=== PATIENT | male | born 1950 | race Caucasian/White ===

== ENCOUNTER → 2016-10-16 | Outpatient (CLI) | payer BC | LOC: LAB 06:58 | DX: Z00.00 Encounter for general adult medical examination without abnormal findings (principal); Z12.5 Encounter for screening for malignant neoplasm of prostate ==

== ENCOUNTER → 2018-01-21 | Outpatient (CLI) | payer BC, MEDICARE ==
[2018-01-12 17:02] VITALS: BP 116/68
[~2018-01-21] MED LIST: ALEVE220 M1 PO; DIABETA 5MG5 MG/TAB PO; DICLOFENAC SOD50 MG PO; GLUCOPHAGE1000 MG PO; HYDROCHLOROTHIA1 T14 PO; MULTIVITAMIN1 SGL PO; PANTOPRAZOLE SO40 MG PO; SIMVASTATIN80 MG PO
== END ==
LOC: LAB 06:50
DX: Z12.11 Encounter for screening for malignant neoplasm of colon (principal); Z00.00 Encounter for general adult medical examination without abnormal findings

== ENCOUNTER → 2018-01-21 | Day surgery (SDC) | payer BC, MEDICARE ==
[2018-01-12 17:02] VITALS: BP 116/68
[~2018-01-21] MED LIST changes: +POTASSIUM CHLO10 ME7 PO
== END ==
LOC: RAD 06:37
DX: M19.012 Primary osteoarthritis, left shoulder (principal)

== ENCOUNTER 2018-02-21 16:38 | Emergency (ER) | payer BC, MEDICARE ==
[~2018-02-21] VITALS: Ht 170.2 cm; Wt 102.7 kg
[~2018-02-21 16:38] MED LIST changes: -POTASSIUM CHLO10 ME7 PO
[2018-02-21 17:23] LABS: EOS # 0.1 (0.04-0.40); HEMATOCRIT 40.6 % (42.0-52.0); HEMOGLOBIN 14.1 g/dL (13.5-18.0); LYMPH# 1.8 (1.50-4.00); MEAN CELL VOLUME 87 fl (78-100); MEAN CORPUSCULAR HEMOGLOBIN 30 pg (27-31); MEAN CORPUSCULAR HGB CONC 35 g/dL (33-37); MEAN PLATELET VOLUME 9.8 fl (7.4-10.4); MONO # 0.5 (0.20-0.80); NEU # 5.4 (1.40-6.50); PLATELET COUNT 255 K/mm3 (130-400); RED BLOOD COUNT 4.69 M/mm3 (4.20-5.60); RED CELL DISTRIBUTION WIDTH 12.7 % (11.5-14.5); WHITE BLOOD COUNT 7.8 K/mm3 (4.8-10.8)
[2018-02-21 17:35] LABS: ALBUMIN 4.1 g/dL (3.5-5.0); CALCIUM 9.3 mg/dL (8.4-10.2); POTASSIUM 3.5 mmol/L (3.6-5.0); TOTAL BILIRUBIN 0.6 mg/dL (0.2-1.3); TOTAL PROTEIN 6.7 g/dL (6.3-8.2)
[2018-02-21 17:43] LABS: D-DIMER 0.28 mg/L FEU (0.15-0.50)
[2018-02-21] MEDS ORDERED: POTASSIUM CHLO10 ME7 PO (18:47)
[2018-02-21 19:00] VITALS: BP 159/73
== END 2018-02-21 19:00 | disposition home or self-care (01) ==
LOC: ED 16:38
PROVIDERS: Family Medicine
DX: I49.1 Atrial premature depolarization (principal); E87.6 Hypokalemia; E11.9 Type 2 diabetes mellitus without complications; I10 Essential (primary) hypertension; G47.30 Sleep apnea, unspecified; E78.5 Hyperlipidemia, unspecified; K21.9 Gastro-esophageal reflux disease without esophagitis; Z91.14 Patient's other noncompliance with medication regimen; Z82.41 Family history of sudden cardiac death; Z79.84 Long term (current) use of oral hypoglycemic drugs; Z79.899 Other long term (current) drug therapy

== ENCOUNTER → 2018-05-15 | Outpatient (CLI) | payer BC, MEDICARE ==
[~2018-05-15] MED LIST changes: +POTASSIUM CHLO10 ME7 PO
[2018-05-15 23:51] LABS: FOLLICLE STIMULATING HORMONE 8.3 mIU/mL (1.0-12.0); LUTENIZING HORMONE 6.3 mIU/mL (0.6-12.1); PROLACTIN 5.5 ng/mL (3.5-19.4); TESTOSTERONE 440 ng/dL (221-716)
== END ==
LOC: LAB 06:55
PROVIDERS: Internal Medicine
DX: E11.9 Type 2 diabetes mellitus without complications (principal); E29.1 Testicular hypofunction

== ENCOUNTER 2019-01-29 11:31 | Emergency (ER) | payer BC, MEDICARE ==
[~2019-01-29] VITALS: Ht 170.2 cm; Wt 101.4 kg
[2019-01-29 11:50] LABS: HEMATOCRIT 41.3 % (42.0-52.0); HEMOGLOBIN 13.8 g/dL (13.5-18.0); LYMPH# 1.2 (1.50-4.00); MEAN CELL VOLUME 87 fl (78-100); MEAN CORPUSCULAR HEMOGLOBIN 29 pg (27-31); MEAN CORPUSCULAR HGB CONC 33 g/dL (33-37); MEAN PLATELET VOLUME 9.4 fl (7.4-10.4); MONO # 0.4 (0.20-0.80); NEU # 5.4 (1.40-6.50); PLATELET COUNT 271 K/mm3 (130-400); RED BLOOD COUNT 4.73 M/mm3 (4.20-5.60); RED CELL DISTRIBUTION WIDTH 13.2 % (11.5-14.5)
[2019-01-29] MEDS ORDERED: VOLTAREN-XR100 M1 PO (11:53)
[2019-01-29] MEDS ORDERED: CYCLOBENZAPRINE10 M1 PO (11:53)
[2019-01-29 11:59] LABS: ALBUMIN 3.9 g/dL (3.4-4.8)
[2019-01-29 12:00] LABS: POTASSIUM 4.6 mmol/L (3.5-5.1)
[2019-01-29 12:01] LABS: CALCIUM 9.1 mg/dL (8.3-10.5)
[2019-01-29 12:02] LABS: TOTAL PROTEIN 6.3 g/dL (6.2-8.1)
[2019-01-29 12:04] LABS: TOTAL BILIRUBIN 0.6 mg/dL (0.2-1.2)
[2019-01-29] MEDS ORDERED: MECLIZINE PO (12:36)
[2019-01-29 12:57] VITALS: BP 193/96
== END 2019-01-29 12:52 | disposition home or self-care (01) ==
LOC: ED 11:31
PROVIDERS: Nurse Practitioner Primary Care
DX: H81.13 Benign paroxysmal vertigo, bilateral (principal); E11.9 Type 2 diabetes mellitus without complications; I10 Essential (primary) hypertension; E78.5 Hyperlipidemia, unspecified; K21.9 Gastro-esophageal reflux disease without esophagitis; G47.30 Sleep apnea, unspecified; Z79.84 Long term (current) use of oral hypoglycemic drugs

== ENCOUNTER → 2019-11-16 | Outpatient (CLI) | payer BC, MEDICARE ==
[~2019-11-16] MED LIST changes: +CYCLOBENZAPRINE10 M1 PO; +MECLIZINE PO; +VOLTAREN-XR100 M1 PO
[2019-11-16 12:57] LABS: EOS # 0.1 (0.04-0.40); HEMATOCRIT 41.1 % (42.0-52.0); HEMOGLOBIN 13.8 g/dL (13.5-18.0); LYMPH# 1.8 (1.50-4.00); MEAN CELL VOLUME 88 fl (78-100); MEAN CORPUSCULAR HEMOGLOBIN 30 pg (27-31); MEAN CORPUSCULAR HGB CONC 34 g/dL (33-37); MEAN PLATELET VOLUME 9.3 fl (7.4-10.4); MONO # 0.5 (0.20-0.80); NEU # 4.5 (1.40-6.50); PLATELET COUNT 257 K/mm3 (130-400); RED BLOOD COUNT 4.68 M/mm3 (4.20-5.60); RED CELL DISTRIBUTION WIDTH 13.2 % (11.5-14.5); WHITE BLOOD COUNT 6.9 K/mm3 (4.8-10.8)
[2019-11-16 13:04] LABS: ALBUMIN 4.2 g/dL (3.4-4.8); POTASSIUM 4.4 mmol/L (3.5-5.1)
[2019-11-16 13:05] LABS: CALCIUM 9.3 mg/dL (8.3-10.5)
[2019-11-16 13:06] LABS: TOTAL PROTEIN 6.9 g/dL (6.2-8.1)
[2019-11-16 13:08] LABS: TOTAL BILIRUBIN 0.6 mg/dL (0.2-1.2)
== END ==
LOC: LAB 12:43
PROVIDERS: Nurse Practitioner
DX: R22.2 Localized swelling, mass and lump, trunk (principal); R10.9 Unspecified abdominal pain

== ENCOUNTER → 2020-05-10 | Outpatient (CLI) | payer BC, MEDICARE | LOC: RAD 07:59 | DX: M17.11 Unilateral primary osteoarthritis, right knee (principal) ==

== ENCOUNTER → 2020-06-08 | Outpatient (CLI) | payer BC, MEDICARE | LOC: RAD 18:16 | DX: S83.281A Other tear of lateral meniscus, current injury, right knee, initial encounter (principal); M17.11 Unilateral primary osteoarthritis, right knee ==

== ENCOUNTER 2020-07-24 13:00 | Outpatient (RCR) | payer BC, MEDICARE | END 2020-08-09 17:00 | LOC: PT | DX: M23.261 Derangement of other lateral meniscus due to old tear or injury, right knee (principal) ==

== ENCOUNTER → 2021-02-13 | Outpatient (CLI) | payer BC, MEDICARE ==
[2021-02-13 07:42] LABS: BASO # 0.03 K/mm3 (0.02-0.10); EOS # 0.08 K/mm3 (0.04-0.40); HEMATOCRIT 42.8 % (42.0-52.0); HEMOGLOBIN 14.5 g/dL (13.5-18.0); LYMPH# 2.03 K/mm3 (1.50-4.00); MEAN CELL VOLUME 87 fl (78-100); MEAN CORPUSCULAR HEMOGLOBIN 30 pg (27-31); MEAN CORPUSCULAR HGB CONC 34 g/dL (33-37); MEAN PLATELET VOLUME 9.4 fl (7.4-10.4); MONO # 0.61 K/mm3 (0.20-0.80); NEU # 4.86 K/mm3 (1.40-6.50); PLATELET COUNT 254 K/mm3 (130-400); RED BLOOD COUNT 4.92 M/mm3 (4.20-5.60); RED CELL DISTRIBUTION WIDTH 12.4 % (11.5-14.5); WHITE BLOOD COUNT 7.6 K/mm3 (4.8-10.8)
[2021-02-13 08:00] LABS: ALBUMIN 4.2 g/dL (3.4-4.8); POTASSIUM 4.4 mmol/L (3.5-5.1)
[2021-02-13 08:01] LABS: CALCIUM 10.1 mg/dL (8.3-10.5)
[2021-02-13 08:03] LABS: TOTAL PROTEIN 7.1 g/dL (6.2-8.1)
[2021-02-13 08:05] LABS: TOTAL BILIRUBIN 0.9 mg/dL (0.2-1.2)
[2021-02-13 08:09] LABS: MAGNESIUM 1.54 mg/dL (1.60-2.60)
[2021-02-13 10:21] LABS: URINE APPEARANCE CLEAR; URINE BILIRUBIN NEGATIVE (NEGATIVE); URINE BLOOD NEGATIVE (NEGATIVE); URINE COLOR LIGHT YELLOW; URINE GLUCOSE NEGATIVE (NEGATIVE); URINE KETONE NEGATIVE (NEGATIVE); URINE LEUKOCYTE ESTERASE NEGATIVE (NEGATIVE); URINE NITRATE NEGATIVE (NEGATIVE); URINE PROTEIN(semi-quant) TRACE mg/dL (NEGATIVE); URINE UROBILINOGEN NORMAL (NORMAL); URINE WBC 0-1 /hpf (0-3)
[2021-02-13 22:25] LABS: CREATININE OTHER SOURCE 33 mg/dL (())
== END ==
LOC: LAB 06:52
PROVIDERS: Internal Medicine
DX: Z12.5 Encounter for screening for malignant neoplasm of prostate (principal); E11.9 Type 2 diabetes mellitus without complications; E78.00 Pure hypercholesterolemia, unspecified; I10 Essential (primary) hypertension; K90.9 Intestinal malabsorption, unspecified

== ENCOUNTER → 2021-02-16 | Outpatient (CLI) | payer BC, MEDICARE | LOC: RAD 15:31 | DX: M51.36 Other intervertebral disc degeneration, lumbar region (principal) ==

== ENCOUNTER → 2021-03-08 | Outpatient (CLI) | payer BC, MEDICARE | LOC: RAD 17:00 | DX: M51.36 Other intervertebral disc degeneration, lumbar region (principal); M43.16 Spondylolisthesis, lumbar region; M47.816 Spondylosis without myelopathy or radiculopathy, lumbar region; M48.061 Spinal stenosis, lumbar region without neurogenic claudication ==

== ENCOUNTER → 2021-06-25 | Outpatient (CLI) | payer MEDICARE ==
[2021-06-25 14:16] LABS: BASO # 0.02 K/mm3 (0.02-0.10); EOS # 0.02 K/mm3 (0.04-0.40); EOS % 0.3 % (0.0-4.0); HEMATOCRIT 38.1 % (42.0-52.0); HEMOGLOBIN 12.7 g/dL (13.5-18.0); LYMPH# 1.15 K/mm3 (1.50-4.00); MEAN CELL VOLUME 89 fl (78-100); MEAN CORPUSCULAR HEMOGLOBIN 30 pg (27-31); MEAN CORPUSCULAR HGB CONC 33 g/dL (33-37); MONO # 0.76 K/mm3 (0.20-0.80); NEU # 4.96 K/mm3 (1.40-6.50); PLATELET COUNT 199 K/mm3 (130-400); RED BLOOD COUNT 4.28 M/mm3 (4.20-5.60); RED CELL DISTRIBUTION WIDTH 12.6 % (11.5-14.5); WHITE BLOOD COUNT 6.9 K/mm3 (4.8-10.8)
[2021-06-25 14:34] LABS: ALBUMIN 3.7 g/dL (3.4-4.8); POTASSIUM 4.1 mmol/L (3.5-5.1)
[2021-06-25 14:35] LABS: CALCIUM 9.9 mg/dL (8.3-10.5)
[2021-06-25 14:36] LABS: TOTAL PROTEIN 6.5 g/dL (6.2-8.1)
[2021-06-25 14:38] LABS: TOTAL BILIRUBIN 0.9 mg/dL (0.2-1.2)
[2021-06-25 15:52] LABS: URINE APPEARANCE CLEAR; URINE COLOR YELLOW
[2021-06-25 15:53] LABS: URINE BILIRUBIN NEGATIVE (NEGATIVE); URINE BLOOD TRACE (NEGATIVE); URINE GLUCOSE NEGATIVE (NEGATIVE); URINE KETONE NEGATIVE (NEGATIVE); URINE LEUKOCYTE ESTERASE 1+ (NEGATIVE); URINE MUCUS PRESENT (NOT PRESENT); URINE NITRATE NEGATIVE (NEGATIVE); URINE PROTEIN(semi-quant) TRACE (NEGATIVE); URINE UROBILINOGEN NORMAL (NORMAL)
== END ==
LOC: LAB 13:59
PROVIDERS: Internal Medicine
DX: N39.0 Urinary tract infection, site not specified (principal)

== ENCOUNTER → 2021-11-15 | Outpatient (CLI) | payer MEDICARE ==
[2021-11-15 17:25] LABS: BASO # 0.01 K/mm3 (0.02-0.10); EOS # 0.03 K/mm3 (0.04-0.40); EOS % 0.4 % (0.0-4.0); HEMATOCRIT 40.7 % (42.0-52.0); HEMOGLOBIN 13.8 g/dL (13.5-18.0); LYMPH# 2.31 K/mm3 (1.50-4.00); MEAN CELL VOLUME 87 fl (78-100); MEAN CORPUSCULAR HEMOGLOBIN 30 pg (27-31); MEAN CORPUSCULAR HGB CONC 34 g/dL (33-37); MEAN PLATELET VOLUME 9.2 fl (7.4-10.4); MONO # 0.62 K/mm3 (0.20-0.80); NEU # 5.31 K/mm3 (1.40-6.50); PLATELET COUNT 243 K/mm3 (130-400); RED BLOOD COUNT 4.66 M/mm3 (4.20-5.60); RED CELL DISTRIBUTION WIDTH 12.4 % (11.5-14.5); WHITE BLOOD COUNT 8.3 K/mm3 (4.8-10.8)
[2021-11-15 17:34] LABS: POTASSIUM 4.2 mmol/L (3.5-5.1)
[2021-11-15 17:35] LABS: ALBUMIN 4.3 g/dL (3.4-4.8)
[2021-11-15 17:36] LABS: CALCIUM 9.9 mg/dL (8.3-10.5)
[2021-11-15 17:37] LABS: TOTAL PROTEIN 7.1 g/dL (6.2-8.1)
[2021-11-15 17:39] LABS: TOTAL BILIRUBIN 0.6 mg/dL (0.2-1.2)
[2021-11-15 17:43] LABS: MAGNESIUM 1.86 mg/dL (1.60-2.60)
[2021-11-16 03:21] LABS: URINE APPEARANCE CLEAR; URINE BILIRUBIN NEGATIVE (NEGATIVE); URINE BLOOD NEGATIVE (NEGATIVE); URINE COLOR YELLOW; URINE GLUCOSE NEGATIVE (NEGATIVE); URINE KETONE NEGATIVE (NEGATIVE); URINE LEUKOCYTE ESTERASE NEGATIVE (NEGATIVE); URINE NITRATE NEGATIVE (NEGATIVE); URINE PROTEIN(semi-quant) NEGATIVE (NEGATIVE); URINE UROBILINOGEN NORMAL (NORMAL)
[2021-11-16 03:22] LABS: URINE WBC 0-1 /hpf (0-3)
== END ==
LOC: LAB 17:02
PROVIDERS: Internal Medicine
DX: Z12.5 Encounter for screening for malignant neoplasm of prostate (principal); I10 Essential (primary) hypertension; G47.33 Obstructive sleep apnea (adult) (pediatric); E11.9 Type 2 diabetes mellitus without complications; N40.0 Benign prostatic hyperplasia without lower urinary tract symptoms; E78.00 Pure hypercholesterolemia, unspecified

== ENCOUNTER 2021-12-22 06:33 | Emergency (ER) | payer MEDICARE ==
[2021-12-22] MEDS ORDERED: NORCO 325 MG-51 TA1 PO ×2 (10:20→10:23)
[2021-12-22] MEDS ORDERED: ORPHENADRINE C100 MG PO (10:21)
[2021-12-22 10:32] VITALS: BP 183/86
== END 2021-12-22 10:28 | disposition home or self-care (01) ==
LOC: ED 06:33
DX: M51.27 Other intervertebral disc displacement, lumbosacral region (principal)
CPT/HCPCS: J1885; J2360

== ENCOUNTER → 2021-12-25 | Outpatient (CLI) | payer MEDICARE ==
[~2021-12-25] MED LIST changes: +NORCO 325 MG-51 TA1 PO; +ORPHENADRINE C100 MG PO
== END ==
LOC: RAD 08:53
DX: M51.36 Other intervertebral disc degeneration, lumbar region (principal)

== ENCOUNTER 2022-01-02 13:03 | Outpatient (RCR) | payer MEDICARE | END 2022-01-04 | disposition still patient (30) | LOC: PT | DX: M51.36 Other intervertebral disc degeneration, lumbar region (principal) ==

== ENCOUNTER → 2022-06-19 | Outpatient (CLI) | payer MEDICARE | LOC: CARDREHAB 11:26 | DX: G47.19 Other hypersomnia (principal) | CPT/HCPCS: G0399 ==

== ENCOUNTER → 2023-09-24 | Outpatient (CLI) | payer MEDICARE ==
[2023-09-24 16:17] LABS: BASO # 0.02 K/mm3 (0.02-0.10); EOS # 0.07 K/mm3 (0.04-0.40); EOS % 0.9 % (0.0-4.0); HEMOGLOBIN 13.4 g/dL (13.5-18.0); LYMPH# 2.12 K/mm3 (1.50-4.00); MEAN CELL VOLUME 88 fl (78-100); MEAN CORPUSCULAR HEMOGLOBIN 30 pg (27-31); MEAN CORPUSCULAR HGB CONC 34 g/dL (33-37); MEAN PLATELET VOLUME 9.1 fl (7.4-10.4); MONO # 0.49 K/mm3 (0.20-0.80); NEU # 4.95 K/mm3 (1.40-6.50); PLATELET COUNT 225 K/mm3 (130-400); RED BLOOD COUNT 4.45 M/mm3 (4.20-5.60); RED CELL DISTRIBUTION WIDTH 12.1 % (11.5-14.5); WHITE BLOOD COUNT 7.7 K/mm3 (4.8-10.8)
[2023-09-24 16:24] LABS: CALCIUM 9.2 mg/dL (8.3-10.5)
[2023-09-24 16:26] LABS: TOTAL PROTEIN 6.3 g/dL (6.2-8.1)
[2023-09-24 16:27] LABS: TOTAL BILIRUBIN 0.4 mg/dL (0.2-1.2)
[2023-09-24 16:50] LABS: PH-URINE 5.5 (5.0 - 8.0); URINE APPEARANCE CLEAR (CLEAR); URINE BILIRUBIN NEGATIVE (NEGATIVE); URINE BLOOD NEGATIVE (NEGATIVE); URINE COLOR YELLOW (YELLOW); URINE GLUCOSE NEGATIVE (NEGATIVE); URINE KETONE TRACE (NEGATIVE); URINE LEUKOCYTE ESTERASE NEGATIVE (NEGATIVE); URINE NITRATE NEGATIVE (NEGATIVE); URINE PROTEIN(semi-quant) TRACE (NEGATIVE)
[2023-09-24 16:51] LABS: URINE MUCUS PRESENT (NOT PRESENT)
== END ==
LOC: LAB 16:03
DX: R19.7 Diarrhea, unspecified (principal)

== ENCOUNTER → 2023-11-26 | Outpatient (CLI) | payer MEDICARE | LOC: RAD 11:45 | DX: M47.816 Spondylosis without myelopathy or radiculopathy, lumbar region (principal) ==

== ENCOUNTER → 2024-01-12 | Day surgery (SDC) | payer MEDICARE ==
[~2024-01-12] MED LIST changes: +Lidocaine PF 2% (20 MG/ML) 5 ML VIAL ONE
== END | disposition home or self-care (01) ==
LOC: MSO 03:02
DX: Z12.11 Encounter for screening for malignant neoplasm of colon (principal); D12.5 Benign neoplasm of sigmoid colon
CPT/HCPCS: 00811; J2704; J7120

== ENCOUNTER → 2024-03-19 | Outpatient (CLI) | payer MEDICARE ==
[~2024-03-19] MED LIST changes: -Lidocaine PF 2% (20 MG/ML) 5 ML VIAL ONE
== END ==
LOC: LAB 14:04
DX: E11.9 Type 2 diabetes mellitus without complications (principal)

== ENCOUNTER → 2024-04-26 | Outpatient (CLI) | payer MEDICARE | LOC: LAB 09:55 | DX: R39.15 Urgency of urination (principal) ==

== ENCOUNTER → 2024-07-13 | Outpatient (CLI) | payer MEDICARE ==
[2024-07-13 12:31] LABS: CALCIUM 9.1 mg/dL (8.3-10.5)
== END ==
LOC: LAB 11:48
PROVIDERS: Internal Medicine
DX: I10 Essential (primary) hypertension (principal)

== ENCOUNTER → 2024-07-16 | Outpatient (CLI) | payer MEDICARE ==
[~2024-07-16] MED LIST changes: +Iohexol 300 - 100 ML VIAL IV ONE; +NS 100 ML IV ONE
== END ==
LOC: RAD 11:17
DX: K80.20 Calculus of gallbladder without cholecystitis without obstruction (principal); I70.0 Atherosclerosis of aorta; M47.816 Spondylosis without myelopathy or radiculopathy, lumbar region; M16.0 Bilateral primary osteoarthritis of hip; K44.9 Diaphragmatic hernia without obstruction or gangrene
CPT/HCPCS: Q9967